=== PATIENT | female | born 1955 | race Caucasian/White ===

== ENCOUNTER 2017-05-02 07:42 | Emergency (ER) | payer SELFPAY ==
[~2017-05-02] VITALS: Ht 160 cm; Wt 69.0 kg
[2017-05-02 07:45] VITALS: BP 133/64; PULSE 96; RESP 14; TEMP 98.8; O2SAT 100
--- NOTE | 2017-05-02 08:28 | PD ---
HPI Chief Complaint: Abdominal Pain Time Seen by Provider: 08:12 Travel History International Travel<30 days: No Contact w/Intl Traveler<30days: No Traveled to known affect area: No History of Present Illness HPI 61yo F with no significant PMH presents to the ED with c/o lower abdominal pain. Said it has been intermittent for 2 weeks but for the last 3 days, it has worsen in severity. Pt is more right lower abdomen now but radiates across lower abdomen. Associated with nausea. Said she sometimes does feel better after bowel movement. No blood in stool. Denies any fever, chest pain, sob, vomiting, dysuria, hematuria, vaginal bleeding or discharge. Pt had cholecystectomy 2 months ago. She also had colonoscopy 2 years ago and it was normal. PFSH Past Medical History Cancer: Yes (Rt breast ca, radiation and breast node removed) ?: Not : 0 Past Surgical History Cholecystectomy: Yes (feb 2017) Social History Alcohol Use: Yes (on occasion) Tobacco Use: No Substance Use: No Allergies-Medications (Allergen,Severity, Reaction): Coded Allergies: No Known Allergies (Unverified , 05/02/17) Reported Meds & Prescriptions Reported Meds & Active Scripts Active Tylenol (Acetaminophen) 325 Mg Tab 650 Mg PO Q6H PRN Review of Systems Except as stated in HPI: all other systems reviewed are Neg Physical Exam Narrative GENERAL: 61yo F in mild distress. SKIN: Focused skin assessment warm/dry. HEAD: Atraumatic. Normocephalic. EYES: Pupils equal and round. No scleral icterus. No injection or drainage. CARDIOVASCULAR: Regular rate and rhythm. No murmur appreciated. RESPIRATORY: No accessory muscle use. Clear to auscultation. Breath sounds equal bilaterally. GASTROINTESTINAL: Abdomen soft, +TTP RLQ, suprapubic and LLQ. No rebound tenderness. MUSCULOSKELETAL: No obvious deformities. No clubbing. No cyanosis. No edema. NEUROLOGICAL: Awake and alert. No obvious cranial nerve deficits. Motor grossly within normal limits. Normal speech. PSYCHIATRIC: Appropriate mood and affect; insight and judgment normal. Data Data Last Documented VS Vital Signs Date Time Temp Pulse Resp B/P (MAP) Pulse Ox O2 Delivery O2 Flow Rate FiO2 05/02/17 08:19 18 05/02/17 07:45 98.8 96 133/64 (87) 100 Orders Orders Complete Blood Count With Diff (05/02/17 08:23) Comprehensive Metabolic Panel (05/02/17 08:23) Lipase (05/02/17 08:23) Prothrombin Time / Inr (Pt) (05/02/17 08:23) Act Partial Throm Time (Ptt) (05/02/17 08:23) Urinalysis - C+S If Indicated (05/02/17 08:23) Ct Abd/Pel W Iv Contrast(Rout) (05/02/17 08:23) Morphine Inj (Morphine Inj) (05/02/17 08:30) Ondansetron Inj (Zofran Inj) (05/02/17 08:30) Sodium Chlor 0.9% 1000 Ml Inj (Ns 1000 M (05/02/17 08:30) Morphine Inj (Morphine Inj) (05/02/17 11:30) Ondansetron Inj (Zofran Inj) (05/02/17 11:45) Morphine Inj (Morphine Inj) (05/02/17 11:45) Radiology Film Requests (05/02/17 ) Labs Laboratory Tests Test 05/02/17 08:30 White Blood Count 13.8 TH/MM3 Red Blood Count 5.22 MIL/MM3 Hemoglobin 14.2 GM/DL Hematocrit 44.1 % Mean Corpuscular Volume 84.5 FL Mean Corpuscular Hemoglobin 27.2 PG Mean Corpuscular Hemoglobin Concent 32.2 % Red Cell Distribution Width 13.2 % Platelet Count 355 TH/MM3 Mean Platelet Volume 7.0 FL Neutrophils (%) (Auto) 76.8 % Lymphocytes (%) (Auto) 16.0 % Monocytes (%) (Auto) 5.8 % Eosinophils (%) (Auto) 1.0 % Basophils (%) (Auto) 0.4 % Neutrophils # (Auto) 10.6 TH/MM3 Lymphocytes # (Auto) 2.2 TH/MM3 Monocytes # (Auto) 0.8 TH/MM3 Eosinophils # (Auto) 0.1 TH/MM3 Basophils # (Auto) 0.1 TH/MM3 CBC Comment DIFF FINAL Differential Comment Prothrombin Time 10.3 SEC Prothromb Time International Ratio 1.0 RATIO Activated Partial Thromboplast Time 30.8 SEC Urine Color YELLOW Urine Turbidity CLEAR Urine pH 6.5 Urine Specific [place] 1.015 Urine Protein NEG mg/dL Urine Glucose (UA) NEG mg/dL Urine Ketones TRACE mg/dL Urine Occult Blood NEG Urine Nitrite NEG Urine Bilirubin NEG Urine Urobilinogen LESS THAN 2.0 MG/DL Urine Leukocyte Esterase TRACE Urine RBC 1 /hpf Urine WBC 1 /hpf Urine Squamous Epithelial Cells 1 /hpf Urine Mucus MOD /lpf Microscopic Urinalysis Comment CULT NOT INDICATED Blood Urea Nitrogen 9 MG/DL Creatinine 0.85 MG/DL Random Glucose 110 MG/DL Total Protein 7.6 GM/DL Albumin 3.8 GM/DL Calcium Level 9.2 MG/DL Alkaline Phosphatase 60 U/L Aspartate Amino Transf (AST/SGOT) 21 U/L Alanine Aminotransferase (ALT/SGPT) 28 U/L Total Bilirubin 0.4 MG/DL Sodium Level 140 MEQ/L Potassium Level 3.9 MEQ/L Chloride Level 106 MEQ/L Carbon Dioxide Level 28.6 MEQ/L Anion Gap 5 MEQ/L Estimat Glomerular Filtration Rate 68 ML/MIN Lipase 155 U/L [facility] Medical Decision Making Medical Screen Exam Complete: Yes Emergency Medical Condition: Yes Differential Diagnosis Appendicitis vs. colitis vs. malignancy vs. diverticulitis vs. Inflammatory bowel disease vs. constipation Narrative Course 61yo F who is visiting from [place] here with lower abdominal pain for 2 weeks but has gotten worse for the last few days. Pt is well appearing but very tender on exam so will obtain labs, CT a/p and UA. Labs reviewed, mild leukocytosis at 13.8. CMP unremarkable. Lipase normal. UA showed WBC 1. Culture not indicated. CT a/p showed 8.5cm mass right adnexa region. I discussed with radiologist and there was no signs of appendicitis. I discussed with OB hospitalist who agrees that pt can follow up as outpatient with her infrastructure security architect first. Pt is from [place] and going back tomorrow and has a [employer] to follow up with there. Pt given a CD of her CT a/p. Pt given zofran and morphine and pain has been resolved. Return precautions given. Diagnosis Primary Impression: Adnexal mass Patient Instructions: General Instructions, Moderate Sedation in Children (ED) Departure Forms: Tests/Procedures Additional Instructions: Please follow up with your infrastructure security architect when you return to [place]. Please show him/ her the copy of the CD with the CT abd/pelvis. Return to the ED if symptoms worsen. Med/Other Pt SpecificInfo: Prescription(s) given Scripts Acetaminophen (Tylenol) 325 Mg Tab 650 MG PO Q6H Y for PAIN SCALE 1 TO 4, #20 TAB 0 Refills Prov: Kiersten Vargas DO 05/02/17 Disposition: 01 DISCHARGE HOME Condition: Stable Kiersten Vargas DO May 02, 2017 08:28
[2017-05-02] MEDS ORDERED: SODIUM CHLOR 0.9% 1000 ML INJ 1,000 ML IV ONE (08:30)
[2017-05-02] MEDS ORDERED: ONDANSETRON HCL 4 MG/2 ML VIAL IV PUSH ONE ×2 (08:30→11:45)
[2017-05-02] MEDS ORDERED: MORPHINE SULFATE 2 MG/ML INJ IV PUSH ONE ×3 (08:30→11:45)
[2017-05-02 08:48] LABS: AUTOMATED NEUTROPHIL # 10.6 TH/MM3 (1.8-7.7); BASOPHIL # 0.1 TH/MM3 (0-0.2); BASOPHIL % 0.4 % (0.0-2.0); EOSINOPHIL # 0.1 TH/MM3 (0-0.4); HEMATOCRIT 44.1 % (35.0-46.0); HEMOGLOBIN 14.2 GM/DL (11.6-15.3); LYMPHOCYTE # 2.2 TH/MM3 (1.0-4.8); MEAN CELL VOLUME 84.5 FL (80.0-100.0); MEAN CORPUSCULAR HEMOGLOBIN 27.2 PG (27.0-34.0); MEAN CORPUSCULAR HGB CONC 32.2 % (32.0-36.0); MONO % 5.8 % (0.0-8.0); MONOCYTE # 0.8 TH/MM3 (0-0.9); NEUT % 76.8 % (16.0-70.0); PLATELET COUNT 355 TH/MM3 (150-450); RED BLOOD COUNT 5.22 MIL/MM3 (4.00-5.30); RED CELL DISTRIBUTION WIDTH 13.2 % (11.6-17.2); WHITE BLOOD COUNT 13.8 TH/MM3 (4.0-11.0)
[2017-05-02 08:56] LABS: PROTHROMBIN TIME - PATIENT 10.3 SEC (9.8-11.6)
[2017-05-02 09:06] LABS: ALBUMIN 3.8 GM/DL (3.4-5.0); AST (GOT) 21 U/L (15-37); BICARBONATE 28.6 MEQ/L (21.0-32.0); BILIRUBIN, URINE NEG (NEG); BLOOD UREA NITROGEN 9 MG/DL (7-18); BLOOD, URINE NEG (NEG); CALCIUM 9.2 MG/DL (8.5-10.1); CHLORIDE 106 MEQ/L (98-107); CREATININE 0.85 MG/DL (0.50-1.00); GLOMERULAR FILTRATION RATE 68 ML/MIN (>89); GLUCOSE,RANDOM 110 MG/DL (74-106); GLUCOSE,URINE NEG (NEG); KETONE, URINE TRACE mg/dL (NEG); LIPASE 155 U/L (73-393); MUCUS URINE MOD /lpf (OCC); NITRITE,URINE NEG (NEG); PH, URINE 6.5 (5.0-8.5); SODIUM (NA) 140 MEQ/L (136-145); SQUAMOUS EPITHELIAL CELL URINE 1 /hpf (0-5); URINE COLOR YELLOW (YELLW/STRAW); URINE LEUKOCYTE ESTERASE TRACE (NEG)
[2017-05-02 09:07] LABS: ALT (GPT) 28 U/L (10-53)
[2017-05-02 09:09] LABS: ALKALINE PHOSPHATASE 60 U/L (45-117); TOTAL BILIRUBIN ADULT 0.4 MG/DL (0.2-1.0); TOTAL PROTEIN 7.6 GM/DL (6.4-8.2)
[2017-05-02] MEDS ORDERED: IOHEXOL 350 MG/ML 10 ML VIAL (for RAD DIAG) IVCONTRAST ONE (10:35)
--- NOTE | 2017-05-02 11:09 | RADRPT ---
EXAM DATE/TIME: 05/02/2017 10:35 This report includes an Addendum and supersedes previous reports for this exam. [facility] COMPARISON: No previous studies available for comparison. INDICATIONS : Lower abdominal pain, evaluate for appendicitis. IV CONTRAST: 84 cc Omnipaque 350 (iohexol) IV ORAL CONTRAST: No oral contrast ingested. RADIATION DOSE: 8.54 CTDIvol (mGy) MEDICAL HISTORY : Carcinoma, breast. SURGICAL HISTORY : Cholecystectomy. ENCOUNTER: Initial ACUITY: 1 day PAIN SCALE: 6/10 LOCATION: Right lower quadrant TECHNIQUE: Volumetric scanning of the abdomen and pelvis was performed. Using automated exposure control and ad justment of the mA and/or kV according to patient size, radiation dose was kept as low as reasonably achievable to obtain optimal diagnostic quality images. DICOM format image data is available electro nically for review and comparison. FINDINGS: The lung base is are clear. The liver, spleen, pancreas and adrenals are unremarkable There is symmetric renal function There is no ascites or adenopathy As the large mass in the right adnexa region measuring 8.5 cm suspicious for an cyst adenoma or cyst adenocarcinoma. Again there is no ascites. There is no adenopathy. Abdominal faith intact. This mass is in intimate association with uterus bladder and right ureter. CONCLUSION: 8.5 cm mass right adnexa region. Mich Davenport MD FACR on May 02, 2017 at 11:05 Board Certified Radiologist. This report was verified electronically. ADDENDUM: Discussed with Dr. Vargas. I can see an appendix without inflammatory change or abscess. The appendix does touch and drape across this large adnexal mass. Mich Davenport MD FACR on May 02, 2017 at 13:16 Board Certified Radiologist. This report was verified electronically.
[2017-05-02] MEDS ORDERED: TYLE325T PO (12:13)
== END 2017-05-02 13:04 | disposition home or self-care (01) ==
LOC: NEPE 07:42
DX: N83.8 Other noninflammatory disorders of ovary, fallopian tube and broad ligament (principal); D72.829 Elevated white blood cell count, unspecified; R11.0 Nausea
CPT/HCPCS: 74177; 80053; 81001; 83690; 85025; 85610; 85730; 96361; 96374; 96375; 96376; 99285; J2270; J2405; J7030; Q9967